=== PATIENT | male | born 1985 | race African-American/Black ===

== ENCOUNTER → 2018-07-05 | Outpatient (CLI) | payer BC ==
[2016-09-11 20:08] VITALS: BP 146/100
[~2018-07-05] MED LIST: CEPH-264 PO; CYCL10TA2 PO; DIAZ5TAB PO; DIPH25CA58 PO; HYDR-971 PO; NAPR500T8 PO
--- NOTE | 2018-07-05 15:55 | KCIC ---
CT HEAD WO CONTRAST History: Migraine headaches with aura, dizziness and blurred vision, nausea, hypertension Comparison: None. Technique: Noncontrast CT imaging was performed of the head. Exposure: One or more of the following individualized dose reduction techniques were utilized for this examination: 1. Automated exposure control 2. Adjustment of the mA and/or kV according to patient size 3. Use of iterative reconstruction technique. Findings: No acute extra-axial or parenchymal hemorrhage is identified. There is no significant intra-axial mass effect, midline shift, or extra-axial fluid collection. The madrid-white differentiation of the major vascular territories is preserved. The ventricles, sulci, and cisterns are within normal limits in size and configuration. The mastoid air cells and the visualized paranasal sinuses are aerated. No acute calvarial abnormality is identified. 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 No acute intracranial abnormality is identified. Electronically signed by: Everett Cheung MD (07/05/2018 3:51 PM) [id number]
== END | disposition home or self-care (01) ==
LOC: KCIC CT 15:29
PROVIDERS: ATTEND Internal Medicine
DX: G43.109 Migraine with aura, not intractable, without status migrainosus (principal); I10 Essential (primary) hypertension
CPT/HCPCS: 70450